=== PATIENT | male | born 1985 ===

== ENCOUNTER 2019-05-04 19:49 | Emergency (ER) | payer OTHER ==
[~2019-05-04] VITALS: Ht 182.9 cm; Wt 97.7 kg
[2019-05-04 23:17] VITALS: BP 118/81
== END 2019-05-04 23:00 | disposition home or self-care (01) ==
LOC: EMS 19:53
DX: H10.9 Unspecified conjunctivitis (principal); F17.210 Nicotine dependence, cigarettes, uncomplicated
CPT/HCPCS: 99406